=== PATIENT | female | born 1990 | race Caucasian/White ===

== ENCOUNTER 2017-01-18 15:09 | Outpatient (CLI) | payer OTHER ==
[~2017-01-18] VITALS: Ht 157.5 cm; Wt 91.8 kg
[2017-01-18 15:35] VITALS: BP 139/84
[2017-01-18 15:55] LABS: HEMATOCRIT 40.3 % (34.6-47.8); HEMOGLOBIN 13.4 g/dL (11.7-16.4); WHITE BLOOD COUNT 8.7 x10^3/uL (3.4-10)
[2017-01-18 16:21] LABS: ASPARTATE AMINO TRANSFERASE 23 U/L (15-37); BLOOD UREA NITROGEN 8 mg/dL (7-18)
[2017-01-22] MEDS ORDERED: PREN1TAB10 PO (20:44)
== END 2017-01-18 16:50 | disposition home or self-care (01) ==
LOC: LDOP 15:09
PROVIDERS: ATTEND Obstetrics & Gynecology
DX: O13.3 Gestational [pregnancy-induced] hypertension without significant proteinuria, third trimester (principal); O99.513 Diseases of the respiratory system complicating pregnancy, third trimester; J45.909 Unspecified asthma, uncomplicated; Z3A.37 37 weeks gestation of pregnancy
CPT/HCPCS: 36415; 59025; 80053; 81001; 82570; 84156; 84550; 85025; 99211; G0463

== ENCOUNTER 2017-01-23 00:46 | Inpatient (IN) | payer OTHER ==
[~2017-01-23] VITALS: Ht 157.5 cm; Wt 91.8 kg
[~2017-01-23 00:46] MED LIST: PREN1TAB10 PO
[2017-01-23] MEDS ORDERED: OXYTOCIN 30U/ 0.9% NaCL 500ML 500 ML IV ONE (01:03)
[2017-01-23] MEDS ORDERED: LACTATED RINGERS 1,000 ML IV SCH ×3 (01:03→01:50)
[2017-01-23] MEDS ORDERED: FENTANYL PF 100 MCG/2ML ONE (01:05)
[2017-01-23] MEDS ORDERED: NEWBORN KIT ONE (01:13)
[2017-01-23] MEDS ORDERED: OXYTOCIN 30U/ 0.9% NaCL 500ML 500 ML ONE ×2 (01:13→07:30)
[2017-01-23] MEDS ORDERED: EPHEDRINE 50 MG/ML, 1ML IVPush PRN ×2 (01:30→02:00)
[2017-01-23] MEDS ORDERED: FENTANYL PF 100 MCG/2ML IV PRN (01:30)
[2017-01-23] MEDS ORDERED: ONDANSETRON 2MG/ML, 2ML IVPush PRN (01:30)
[2017-01-23] MEDS ORDERED: LACTATED RINGERS 1,000 ML IVBOLUS PRN ×2 (01:30→02:00)
[2017-01-23] MEDS ORDERED: FENTANYL PF 100 MCG/2ML IVPush PRN (01:30)
[2017-01-23] MEDS ORDERED: TERBUTALINE 1 MG/ML, 1ML IVPush PRN (01:30)
[2017-01-23 01:32] LABS: HEMATOCRIT 38.9 % (34.6-47.8); HEMOGLOBIN 13.1 g/dL (11.7-16.4)
[2017-01-23] MEDS ORDERED: FENTANYL/BUPIV./NS/PF 250 ML EPIDCONT ONE (01:48)
[2017-01-23] MEDS ORDERED: BUPIVACAINE/PF 0.25% ONE (01:48)
[2017-01-23] MEDS ORDERED: FENTANYL/BUPIV./NS/PF 250 ML EPIDCONT SCH (01:50)
[2017-01-23 01:55] LABS: DIFF TOTAL CELLS COUNTED 100 CELL DIFF
[2017-01-23 01:59] LABS: VERIFY COUNTS? YES
[2017-01-23] MEDS ORDERED: NALOXONE 0.4 MG/ML, 1ML IVPush PRN (02:00)
[2017-01-23] MEDS ORDERED: LIDOCAINE 1%, 20ML ONE (03:37)
[2017-01-23] MEDS ORDERED: MISOPROSTOL 200 MCG TABLET ONE (03:37)
[2017-01-23] MEDS ORDERED: OXYTOCIN 30U/ 0.9% NaCL 500ML 500 ML IV PRN (04:13)
[2017-01-23] MEDS: PRENATAL VIT/IRON/FA 1 EACH TABLET PO SCH (09:00)
[2017-01-23] MEDS ORDERED: ACETAMINOPHEN 325 MG TABLET PO PRN ×2 (09:00)
[2017-01-23] MEDS ORDERED: MISOPROSTOL 200 MCG TABLET PR PRN (09:00)
[2017-01-23] MEDS ORDERED: MEASLES,MUMPS&RUBELLA VACC/PF 0.5 ML SQ PRN (09:00)
[2017-01-23] MEDS ORDERED: CARBOPROST TROMETHAMINE 250 MCG/ML, 1ML IM PRN (09:00)
[2017-01-23] MEDS ORDERED: IBUPROFEN 600 MG TABLET PO PRN (09:00)
[2017-01-23] MEDS ORDERED: DIPH,PERTUSS(ACELL),TET VAC/PF NC IM-VACC PRN (09:00)
[2017-01-23] MEDS ORDERED: DOCUSATE 100 MG CAPSULE PO PRN (09:00)
[2017-01-23] MEDS ORDERED: METHYLERGONOVINE 0.2 MG/ML IM PRN (09:00)
[2017-01-23] MEDS ORDERED: RHOGAM FROM BLOOD BANK 1 NOTE EA IM/IV ONE (09:00)
[2017-01-23] MEDS ORDERED: IBUPROFEN 600 MG TABLET ONE (09:04)
[2017-01-23] MEDS: OXYTOCIN 30U/ 0.9% NaCL 500ML 500 ML IV SCH ×2 (09:06→18:40)
[2017-01-23 09:48] VITALS: BP 108/64
[2017-01-23 15:25] VITALS: BP 105/55
[2017-01-23 15:42] LABS: HEMATOCRIT 35.6 % (34.6-47.8); HEMOGLOBIN 11.9 g/dL (11.7-16.4); WHITE BLOOD COUNT 34.7 x10^3/uL (3.4-10)
[2017-01-23 15:59] LABS: DIFF TOTAL CELLS COUNTED 100 CELL DIFF
[2017-01-23 16:01] LABS: VERIFY COUNTS? YES
[2017-01-23 20:10] VITALS: BP 108/56
[2017-01-24 00:50] VITALS: BP 106/52
[2017-01-24] MEDS: OXYTOCIN 30U/ 0.9% NaCL 500ML 500 ML IV SCH ×2 (04:40→14:40)
[2017-01-24 08:40] VITALS: BP 115/63
[2017-01-24] MEDS: PRENATAL VIT/IRON/FA 1 EACH TABLET PO SCH (09:00)
[2017-01-24 20:00] VITALS: BP 138/86
[2017-01-25] MEDS: OXYTOCIN 30U/ 0.9% NaCL 500ML 500 ML IV SCH ×2 (00:40→10:40)
[2017-01-25 08:06] VITALS: BP 122/74
[2017-01-25] MEDS: PRENATAL VIT/IRON/FA 1 EACH TABLET PO SCH (08:22)
== END 2017-01-25 14:20 | disposition home or self-care (01) | DRG 775 ==
LOC: LDOP 00:46 → LDIP 01:10 → 2NW 09:45
PROVIDERS: ADMIT Obstetrics & Gynecology; ATTEND Obstetrics & Gynecology
PROC: 10E0XZZ Delivery of Products of Conception, External Approach (ICD-10-PCS; principal; 2017-01-23)
PROC: 0HQ9XZZ Repair Perineum Skin, External Approach (ICD-10-PCS; 2017-01-23)
DX: O70.0 First degree perineal laceration during delivery (principal); Z37.0 Single live birth; Z3A.39 39 weeks gestation of pregnancy
CPT/HCPCS: 36415; 85025; 86850; 86900; J3010; J2590; J7120